=== PATIENT | male | born 1980 | race Native Hawaiian/Other Pacific Islander ===

== ENCOUNTER 2016-09-10 20:53 | Inpatient (IN) | payer OTHER ==
[2016-09-10 21:56] LABS: Basophils % (Auto) 0.4 % (0.0-1.8); Hematocrit 43.3 % (35.5-45.6); Hemoglobin 14.4 gm/dl (11.8-15.2); Mean Corpuscular HGB Conc 33 % (32-34); Mean Corpuscular Hemoglobin 29 pg (28-32); Mean Corpuscular Volume 88 fl (84-94); Platelet Count 140 K/mm3 (140-440); Red Blood Count 4.91 M/mm3 (3.65-5.03); Red Cell Distribution Width 15.4 % (13.2-15.2); White Blood Count 12.4 K/mm3 (4.5-11.0)
[2016-09-10 22:17] LABS: Anion Gap 20 mmol/L; Blood Urea Nitrogen 16 mg/dL (9-20); Calcium 9.7 mg/dL (8.4-10.2); Carbon Dioxide 25 mmol/L (22-30); Chloride 96.5 mmol/L (98-107); Glucose 262 mg/dL (75-100); Potassium 5.7 mmol/L (3.6-5.0); Sodium 136 mmol/L (137-145)
--- NOTE | 2016-09-11 06:41 | Emergency Department Report ---
ED Chest Pain HPI - General Chief Complaint: Chest Pain Stated Complaint: CHEST PAIN Time Seen by Provider: 09/11/16 06:34 Source: patient Mode of arrival: Ambulatory Limitations: No Limitations - History of Present Illness Initial Comments: This patient was initially very lethargic. Initially he stated that he had no history of heart problems or other medical problems and was not taking any medication. Later I suppose he woke up stating that indeed he was on multiple medicines for hypertension, diabetes and coronary artery disease. This includes isosorbide a beta anand and insulin. He also takes aspirin and Plavix. He has not taken any today. Indeed he has had a coronary artery bypass in 2009. Complaint: chest pain -: hour(s), days(s) Onset: during rest Pain Location: left chest Pain Radiation: none Severity scale (0 -10): 0 Quality: tightness Consistency: constant Improves With: nothing Worsens With: nothing re: denies: nausea, vomting, diaphoresis, dyspnea Other Symptoms: denies: cough, fever Treatments Prior to Arrival: aspirin (I think last dose of aspirin was yesterday ) - Related Data Allergies Allergy/AdvReac Type Severity Reaction Status Date / Time Iodinated Contrast Media - Allergy Swelling Verified 09/10/16 21:11 IV Dye MITUL score - Mitul Score Age > 65: (0) No Aspirin use within the Past 7 Days: (1) Yes 3 or more CAD Risk Factors: (1) Yes 2 or more Angina events in past 24 hrs: (0) No Known CAD with more than 50% Stenosis: (1) Yes Elevated Cardiac Markers: (0) No ST Deviation Greater than 0.5mm: (0) No MITUL Score: 3 ED Review of Systems ROS: Stated complaint: CHEST PAIN Other details as noted in HPI Constitutional: denies: chills, fever Eyes: denies: eye pain, eye discharge, vision change ENT: denies: ear pain, throat pain Respiratory: denies: cough, shortness of breath, wheezing Cardiovascular: chest pain. denies: palpitations Endocrine: no symptoms reported Gastrointestinal: denies: abdominal pain, nausea, diarrhea Genitourinary: denies: urgency, dysuria Musculoskeletal: denies: back pain, joint swelling, arthralgia Skin: denies: rash, lesions Neurological: denies: headache, weakness, paresthesias Psychiatric: denies: anxiety, depression Hematological/Lymphatic: denies: easy bleeding, easy bruising ED Past Medical Hx - Past Medical History Previous Medical History?: Yes Hx Hypertension: Yes Hx Heart Attack/AMI: Yes Hx Congestive Heart Failure: Yes Hx Diabetes: Yes Hx Psychiatric Treatment: Yes (Depression Anxiety) - Surgical History Past Surgical History?: Yes Hx Open Heart Surgery: Yes (CABG) Hx Cholecystectomy: Yes - Social History Smoking Status: Never Smoker Substance Use Type: Alcohol ED Physical Exam - General Limitations: No Limitations General appearance: alert, in no apparent distress - Head Head exam: Present: atraumatic, normocephalic - Eye Eye exam: Present: normal appearance. Absent: scleral icterus - ENT ENT exam: Present: normal exam, mucous membranes moist - Neck Neck exam: Present: normal inspection - Respiratory Respiratory exam: Present: normal lung sounds bilaterally. Absent: respiratory distress - Cardiovascular Cardiovascular Exam: Present: regular rate, normal rhythm. Absent: systolic murmur, diastolic murmur, rubs, gallop - GI/Abdominal GI/Abdominal exam: Present: soft, normal bowel sounds. Absent: distended, tenderness, guarding, rebound, rigid - Rectal Rectal exam: Present: deferred - Extremities Exam Extremities exam: Present: normal inspection - Back Exam Back exam: Present: normal inspection. Absent: CVA tenderness (R), CVA tenderness (L) - Neurological Exam Neurological exam: Present: alert, oriented X3, CN II-XII intact. Absent: motor sensory deficit - Psychiatric Psychiatric exam: Present: normal affect, normal mood - Skin Skin exam: Present: warm, dry, intact, normal color. Absent: rash ED Course Vital Signs 09/10/16 09/11/16 09/11/16 21:11 01:48 05:03 Temperature 97.8 F 97.6 F 98.1 F Pulse Rate 90 82 80 Respiratory 18 18 20 Rate Blood Pressure 114/74 Blood Pressure 112/82 108/69 [Left] O2 Sat by Pulse 98 96 100 Oximetry 09/11/16 06:20 Temperature 98.8 F Pulse Rate 78 Respiratory 12 Rate Blood Pressure Blood Pressure 113/68 [Left] O2 Sat by Pulse 97 Oximetry - Reevaluation(s) Reevaluation #1: Patient was given gentle IV fluid, low dose morphine and nitroglycerin paste. The nurse was asked to reconcile his medications. Patient now is speaking Vietnamese quite coherently. He does remain somewhat lethargic however. 09/11/16 07:43 ED Medical Decision Making - Lab Data Result diagrams: 09/10/16 21:37 09/10/16 21:37 Laboratory Results - last 24 hr 09/10/16 09/10/16 09/11/16 21:37 21:37 00:21 WBC 12.4 H RBC 4.91 Hgb 14.4 Hct 43.3 MCV 88 MCH 29 MCHC 33 RDW 15.4 H Plt Count 140 Lymph % (Auto) 8.9 L Andrews % (Auto) 4.8 Eos % (Auto) 1.0 Baso % (Auto) 0.4 Lymph # 1.1 L Andrews # 0.6 Eos # 0.1 Baso # 0.1 Seg Neutrophils % 84.9 H Seg Neutrophils # 10.5 H Sodium 136 L Potassium 5.7 H Chloride 96.5 L Carbon Dioxide 25 Anion Gap 20 BUN 16 Creatinine 1.0 Estimated GFR > 60 BUN/Creatinine Ratio 16.00 Glucose 262 H Calcium 9.7 Troponin T < 0.010 < 0.010 09/11/16 04:23 WBC RBC Hgb Hct MCV MCH MCHC RDW Plt Count Lymph % (Auto) Andrews % (Auto) Eos % (Auto) Baso % (Auto) Lymph # Andrews # Eos # Baso # Seg Neutrophils % Seg Neutrophils # Sodium Potassium Chloride Carbon Dioxide Anion Gap BUN Creatinine Estimated GFR BUN/Creatinine Ratio Glucose Calcium Troponin T < 0.010 - EKG Data EKG shows normal: sinus rhythm, axis, intervals, QRS complexes, ST-T waves Rate: normal - EKG Data When compared to previous EKG there are: previous EKG unavailable Interpretation: no acute changes, nonspecific ST-T wave swathi, other (patient has evidence of old inferior wall WA. He has poor R-wave progression. His repolarization segments do not reflect acute ischemia there are nonspecific and/ or related to previous inferior wall zone.) - Radiology Data interpreted by me: Chest x-ray showed hypoventilation and previous coronary artery bypass graft/ median sternotomy. Critical care attestation.: If time is entered above; I have spent that time in minutes in the direct care of this critically ill patient, excluding procedure time. ED Disposition Clinical Impression: Status post coronary artery bypass graft Chest pain Qualifiers: Chest pain type: unspecified Qualified Code(s): R07.9 - Chest pain, unspecified Disposition: OP ADMITTED IP TO THIS HOSP Is pt being admited?: Yes Does the pt Need Aspirin: Yes Condition: Stable Instructions: Chest Pain (ED) Time of Disposition: 07:45
[2016-09-11] MEDS ORDERED: KIONEX PO ONE ×2 (06:43→09:59)
[2016-09-11 07:27] LABS: Alanine Aminotransferase 54 units/L (7-56); Albumin 3.8 g/dL (3.9-5); Albumin/Globulin Ratio 1.2 %; Alkaline Phosphatase 113 units/L (35-129); Bilirubin,Total 0.4 mg/dL (0.1-1.2); Magnesium 1.5 mg/dL (1.7-2.3); Total Protein 6.9 g/dL (6.3-8.2)
[2016-09-11 07:30] LABS: Bilirubin,Direct < 0.2 mg/dL (0-0.2); INR 0.93 (0.87-1.13)
[2016-09-11 07:31] LABS: Partial Thromboplastin Time 33.7 Sec. (24.2-36.6)
[2016-09-11] MEDS ORDERED: ASPIRIN PO ONE (07:46)
[2016-09-11] MEDS ORDERED: NITRO-BID 2% TP ONE (07:47)
[2016-09-11] MEDS ORDERED: NACL 0.9% 1000 ML 1,000 ML IV ONE (07:47)
[2016-09-11] MEDS ORDERED: MORPHINE IV ONE (07:48)
[2016-09-11] MEDS ORDERED: ZOFRAN IV ONE (07:48)
--- NOTE | 2016-09-11 07:59 | History and Physical Report ---
History of Present Illness Date of examination: 09/11/16 Date of admission: 09/11/16 Chief complaint: Chest pain intermittent for the last 2 days History of present illness: 36-year-old male patient with significant past medical history of coronary artery disease status post CABG 2 in 2009 type 2 diabetes mellitus hypertension dyslipidemia anxiety disorder presented to the emergency room with left-sided chest pain intermittent for the last 2 days, patient claims complaints of his medications grades his chest pain between 7-8/10 at its peak, radiating to the neck and shoulder pressure to squeezing type not associated with nausea vomiting or diaphoresis, no aggravating or relieving symptoms, no orthopnea paroxysmal nocturnal dyspnea Patient complains of pain about 6-7/10 at the time of my evaluation Denies nausea vomiting or abdominal pain denies headache dizziness weakness or numbness Past History Past Medical History: CAD, diabetes, hypertension, hyperlipidemia, other ( depression) Past Surgical History: CABG, PTCA Social history: full code, other (denies recreational drug use). denies: smoking, alcohol abuse, prescription drug abuse Family history: CAD, hypertension Medications and Allergies Allergies Allergy/AdvReac Type Severity Reaction Status Date / Time Iodinated Contrast Media - Allergy Swelling Verified 09/10/16 21:11 IV Dye Home Medications Medication Instructions Recorded Confirmed Last Taken Type ALPRAZolam [Xanax TAB] 2 mg PO TID PRN 09/11/16 09/11/16 Unknown History Aspirin [Aspirin BABY CHEW TAB] 81 mg PO DAILY 09/11/16 09/11/16 Unknown History AtorvaSTATin [Lipitor] 40 mg PO DAILY 09/11/16 09/11/16 Unknown History Citalopram Hydrobromide [celeXA] 40 mg PO DAILY 09/11/16 09/11/16 Unknown History Clopidogrel Bisulfate [Plavix] 75 mg PO DAILY 09/11/16 09/11/16 Unknown History Gabapentin [Neurontin] 800 mg PO DAILY 09/11/16 09/11/16 Unknown History Isosorbide Dinitrate [Isordil] 120 mg PO DAILY 09/11/16 09/11/16 Unknown History Lisinopril [Zestril TAB] 40 mg PO QDAY 09/11/16 09/11/16 Unknown History Metoprolol [Lopressor TAB] 50 mg PO BID 09/11/16 09/11/16 Unknown History Active Meds: Active Medications Sodium Chloride (Nacl 0.9% 1000 Ml) 1,000 mls @ 75 mls/hr IV ONCE ONE Stop: 09/11/16 21:06 Review of Systems Constitutional: no weight loss, no weight gain, no fever, no chills Ears, nose, mouth and throat: no nasal congestion, no nasal discharge Cardiovascular: chest pain, lightheadedness, no orthopnea, no palpitations, no paroxysmal nocturnal dyspnea Respiratory: no cough with sputum, no hemoptysis Gastrointestinal: nausea, no vomiting, no diarrhea Genitourinary Male: no dysuria, no flank pain Musculoskeletal: no myalgias, no arthritis Integumentary: no rash, no lesions Neurological: no paralysis, no weakness, no syncope Psychiatric: anxiety, depression Endocrine: no cold intolerance, no heat intolerance, no polydipsia, no polyuria Hematologic/Lymphatic: no easy bruising, no easy bleeding Allergic/Immunologic: no urticaria, no allergic rhinitis Exam - Constitutional Vitals: Temp Pulse Resp BP Pulse Ox 98 F 82 11 L 102/73 99 09/11/16 07:44 09/11/16 07:39 09/11/16 07:39 09/11/16 07:39 09/11/16 07:39 General appearance: Present: no acute distress, well-nourished - EENT Eyes: Present: PERRL, EOM intact - Neck Neck: Present: supple, normal ROM - Respiratory Respiratory: bilateral: diminished, negative: rales, rhonchi, wheezing - Cardiovascular Rhythm: regular Heart Sounds: Present: S1 & S2 - Extremities Extremities: no ischemia, pulses symmetrical, No edema - Abdominal General gastrointestinal: Present: soft, non-tender, non-distended, normal bowel sounds - Integumentary Integumentary: Present: clear, warm - Musculoskeletal Musculoskeletal: strength equal bilaterally - Psychiatric Psychiatric: appropriate mood/affect, cooperative - Neurologic Neurologic: CNII-XII intact, moves all extremities Results - Labs CBC & Chem 7: 09/10/16 21:37 09/11/16 06:50 Labs: Abnormal lab results 09/10/16 09/10/16 09/11/16 Range/Units 21:37 21:37 06:50 WBC 12.4 H (4.5-11.0) K/mm3 RDW 15.4 H (13.2-15.2) % Lymph % (Auto) 8.9 L (13.4-35.0) % Lymph # 1.1 L (1.2-5.4) K/mm3 Seg Neutrophils % 84.9 H (40.0-70.0) % Seg Neutrophils # 10.5 H (1.8-7.7) K/mm3 Sodium 136 L (137-145) mmol/L Potassium 5.7 H (3.6-5.0) mmol/L Chloride 96.5 L (98-107) mmol/L Glucose 262 H (75-100) mg/dL POC Glucose (70-105) Magnesium 1.5 L (1.7-2.3) mg/dL Albumin 3.8 L (3.9-5) g/dL 09/11/16 Range/Units 07:39 WBC (4.5-11.0) K/mm3 RDW (13.2-15.2) % Lymph % (Auto) (13.4-35.0) % Lymph # (1.2-5.4) K/mm3 Seg Neutrophils % (40.0-70.0) % Seg Neutrophils # (1.8-7.7) K/mm3 Sodium (137-145) mmol/L Potassium (3.6-5.0) mmol/L Chloride (98-107) mmol/L Glucose (75-100) mg/dL POC Glucose 276 H (70-105) Magnesium (1.7-2.3) mg/dL Albumin (3.9-5) g/dL Assessment and Plan --Chest pain rule out acute coronary syndrome Aspirin, Plavix , beta blockers VISHAL inhibitor , nitrates and statins In management with morphine and Lovenox Serial cardiac enzymes and EKG, echocardiogram for left ventricle function ejection fraction Cardiology evaluation in view of multiple risk factors possible heart cath versus stress test Resume home cardiac medications --History of coronary artery disease status post CABG Resume all home medications Try to obtain medical records from the outside hospital --Hyperkalemia Calcium chloride , Kayexalate , insulin and D50 Recheck potassium and electrolytes --Hypomagnesemia Replenish per protocol and monitor levels --Hypertension moderate control Patient is on beta blockers VISHAL inhibitor's when necessary hydralazine --Dyslipidemia resume lipid-lowering medications --Type 2 diabetes mellitus uncontrolled , patient is on insulin Accu-Chek sliding scale coverage and ADA diet and insulin Check A1c --Diabetic neuropathy Resume home Neurontin --DVT prophylaxis with Lovenox Closely monitor the patient adjust the management as needed Patient's condition treatment plan discussed in detail with the patient his nurse as well as the years physician
[2016-09-11] MEDS ORDERED: MAGNESIUM SULFATE 2GM/50ML 50 ML IV ONE ×2 (08:36→10:17)
[2016-09-11] MEDS ORDERED: AMBIEN PO PRN (08:51)
--- NOTE | 2016-09-11 09:16 | XRay Report ---
Single view chest: History: Hypertension. Findings: Low volume lungs. Normal cardiomediastinal silhouette. No consolidation, pneumothorax or pleural effusion. Impression: No acute cardiopulmonary findings.
[2016-09-11 09:36] LABS: Creatine Kinase MB 1.4 ng/mL (0.0-4.0)
[2016-09-11 09:38] LABS: Cholesterol 153 mg/dL (50-199); Creatine Kinase 49 units/L (55-170); HDL Cholesterol 50 mg/dL (40-59); LDL Cholesterol,Direct 73 mg/dL (50-130); Triglycerides 153 mg/dL (2-149)
[2016-09-11] MEDS ORDERED: CALCIUM CHLORIDE 1,000 MG in NACL 0.9% 100 ML IV ONE (09:59)
[2016-09-11] MEDS ORDERED: BENADRYL PO PRN (10:00)
[2016-09-11] MEDS ORDERED: ZESTRIL PO SCH (10:00)
[2016-09-11] MEDS ORDERED: BENADRYL IV ONE (10:00)
[2016-09-11] MEDS ORDERED: NACL 0.9% 1000 ML 1,000 ML ONE (11:27)
[2016-09-11] MEDS ORDERED: ASPIRIN ONE (11:27)
[2016-09-11] MEDS ORDERED: KIONEX ONE (11:27)
[2016-09-11] MEDS ORDERED: PLAVIX ONE (11:28)
[2016-09-11] MEDS ORDERED: ZESTRIL ONE (11:28)
[2016-09-11] MEDS ORDERED: BENADRYL ONE (11:29)
[2016-09-11] MEDS: LOVENOX SUB-Q SCH (11:35)
[2016-09-11] MEDS: PLAVIX PO SCH (11:40)
[2016-09-11] MEDS: ASPIRIN PO SCH (11:50)
[2016-09-11] MEDS: celeXA PO SCH (11:51)
[2016-09-11] MEDS ORDERED: LOVENOX SUB-Q ONE (12:02)
[2016-09-11] MEDS ORDERED: COREG ONE (12:03)
[2016-09-11] MEDS: COREG PO SCH ×2 (12:08→23:12)
[2016-09-11] MEDS: IMDUR PO SCH (12:35)
[2016-09-11 12:56] LABS: Urine Drugs of Abuse Note Disclamer
[2016-09-11] MEDS ORDERED: NOVOLOG SUB-Q ONE (13:11)
[2016-09-11] MEDS: NOVOLOG SUB-Q SCH ×3 (13:17→23:11)
[2016-09-11 13:21] LABS: Bacteria,Urine 1+ /HPF (Negative); Bilirubin,Urine NEG (Negative); Blood,Urine NEG (Negative); Ketones,Urine NEG (Negative); Leukocyte Esterase,Urine NEG (Negative); Mucus,Urine FEW /HPF; Nitrite,Urine NEG (Negative); Protein,Urine <15 mg/dL mg/dL (Negative); Urobilinogen,Urine < 2.0 mg/dL (<2.0)
[2016-09-11] MEDS: MORPHINE IV PRN (18:19)
[2016-09-11] MEDS ORDERED: XANAX PO PRN (22:09)
[2016-09-11] MEDS: ROXICODONE PO PRN (23:07)
[2016-09-11] MEDS: LEVEMIR SUB-Q SCH (23:11)
--- NOTE | 2016-09-11 23:56 | Admit Criteria Form ---
Admission Criteria Documentation: CARDIOLOGY GRG Clinical Indications for Admission to Inpatient Care ( Place 'X' for any and all applicable criteria): Hospital admission is needed for appropriate care of the patient because of ANY ONE of the following (1): [ ] I. Hemodynamic instability as indicated by ALL of the following (1)(2)(3) (4)(5) [ ]a) Vital signs or other findings not as expected for chronic patient condition or baseline [ ]b) Instability indicated by ANY ONE of the following: [ ]i) Hypotension [ ]ii) Symptomatic Tachycardia unresponsive to treatment ( e.g., analgesia, fluids, sedation as indicated) [ ]iii) Inadequate perfusion indicated by ANY ONE of the following: [ ] 1) Lactic acidosis (> 2 mmol/L) [ ] 2) New abnormal capillary refill (> 3 seconds) [ ] 3) Reduced urine output [ ] 4) New altered mental status [ ]iv) Orthostatic vital sign changes unresponsive to treatment (e.g., fluids) [ ]v) IV inotropic or vasopressor medication required to maintain adequate blood pressure or perfusion [ ] II. Severe heart failure as indicated by ANY ONE of the following(17)(18) [ ]a) Respiratory distress [ ]b) Hypotension [ ]c) Anasarca (refractory to outpatient therapy) [ ]d) Cardiac arrhythmias of immediate concern [ ]e) Myocardial ischemia [ ] III. Cardiac arrhythmias or findings of immediate concern indicated by ANY ONE of the following (19)(20): [ ] a) Heart rhythms that are inherently dangerous or unstable indicated by ANY ONE of the following (21)(22)(23): [ ] i) Resuscitated ventricular fibrillation or cardiac arrest [ ] ii) Ventricular escape rhythm [ ] iii) Sustained ventricular tachycardia (30 seconds or more of ventricular rhythm at greater than 100 beats per minute) [ ] iv) Nonsustained ventricular tachycardia and ANY ONE of the following: [ ] 1) Suspected cardiac ischemia as cause or consequence of ventricular tachycardia [ ] 2) In setting of acute myocarditis [ ] b) Unstable cardiac conduction defects indicated by ANY ONE of the following(23)(24)(25) [ ] i) Type II second-degree atrioventricular block [ ]ii) Third-degree atrioventricular block [ ]iii) New-onset left bundle branch block with suspected myocardial ischemia [ ]c) Any heart rhythm and ANY ONE of the following (21)(22)(26)(27) (28) [ ] i) Continuous long-term ECG monitoring needed (e.g., initiation of drug requiring monitoring for more than 24 hours) [ ] ii) Patient has automatic implanted cardioverter defibrillator that is repeatedly firing, malfunctioning, or in need of immediate adjustment of settings beyond the scope of ambulatory or observation care [ ]d) Heart rhythms of concern due to ANY ONE of the following: [ ] i) Hypotension [ ] ii) Respiratory distress [ ] iii) Association with other significant symptoms (e.g., bradycardia with syncope or ongoing dizziness, supraventricular tachycardia with chest pain (14)(15)(17) [ ] IV. Monitoring for cardiac contusion beyond the scope of observation care needed [A](30)(31)(32) [ ] V. Surgical or device complication (e.g., valve replacement complication , pacemaker dysfunction) (35)(41)(44)(45)(46) [ ] . Inpatient palliative care needed. [B](49) Also use Inpatient Palliative Care Criteria [ ] VII. Nonbacterial thrombotic (marantic) endocarditis (36)(43)(47)(48) [X ] VIII. Cardiology condition, symptom, or finding for which emergency and observation care has failed or are not considered appropriate. [ ] IX. Acute valvular disease requiring inpatient as indicated by ANY ONE of the following (41) [ ]a) Acute valvular regurgitation (42) [ ]b) Noninfectious valvulitis (43) [ ]c) Obstructive valve thrombosis [ ]d) Paravalvular leak [ ]e) Other significant valvular disorder remaining after emergency or observation level of care (as appropriate) [ ]X. Pericardial disease requiring inpatient treatment as indicated by ANY ONE of the following (33)(34)(35)(36)(37) [ ]a) Suspected tamponade (38)(39)(40) [ ]b) Hemopericardium [ ]c) Other significant pericardial disorder remaining after emergency or observation level of care (as appropriate) [ ] XI. Cardiac ischemia beyond scope of emergency and observation care. [ ] XII. Hypertension requiring inpatient treatment as indicated by ANY ONE of the following (6)(7)(8) [ ]a) SBP greater than 220 mm Hg or DBP greater than 120 mmHg despite treatment [ ]b) SBP greater than 140 mm Hg or DBP greater than 100 mm Hg with evidence of acute end organ damage as indicated by ANY ONE of the following [ ] i) Altered mental status [ ] ii) Acute renal failure as indicated by new onset of ANY ONE of the following (9)(10)(11)(12)(13) [ ]1) 3-fold rise in serum creatinine from baseline [ ]2) Serum creatinine greater than 4 mg/dL ( 354 micromoles/L) with acute rise greater than 0.5 mg/dL (44.2 micromoles/L) [ ]3) Reduction of more than 75% in estimated glomerular filtration rate from baseline [ ]4) Estimated glomerular filtration rate less than 35 mL/min/1.73m2 (0.59 mL/sec/1.73m2) in child up to 18 years of age [ ]5) Cessation of urine output indicated by ALL of the following [ ]A. Adequate volume status [ ]B. Inadequate urine output as indicated by ANY ONE of the following [ ]a. Urine output less than 0.3 mL/kg/hr for 24 hours [ ]b. Anuria (urine output less than 0.1 mL/kg/hr) for 12 hours [ ] iii) Aortic dissection [ ] iv) Myocardial Ischemia [ ] v) Left ventricular heart failure [ ]vi) Retinal Hemorrhage [ ]vii) Other significant finding [ ]c) Hypertension in child requiring inpatient treatment as indicated by ALL of the following(14)(15)(16) [ ] i) Outpatient treatment not effective, not available, or not appropriate [ ]ii) SBP or DBP greater than 95th percentile for age [ ]iii) Evidence of acute end organ damage as indicated by ANY ONE of the following [ ]1) Altered mental status [ ]2) Acute renal failure as indicated by new onset of ANY ONE of the following(9)(10)(11)(12)(13) [ ]A. 3-fold rise in serum creatinine from baseline [ ]B. Serum creatinine greater than 4 mg/dL (354 micromoles/L) with acute rise greater than 0.5 mg/dL (44.2 micromoles/L) [ ]C. Reduction of more than 75% in estimated glomerular filtration rate from baseline [ ]D. Estimated glomerular filtration rate less than 35 mL/min/1.73m2 (0.59 mL/sec/1.73m2) in child up to 18 years of age [ ]E. Cessation of urine output indicated by ALL of the following [ ]a. Adequate volume status [ ]b. Inadequate urine output as indicated by ANY ONE of the following [ ]i) Urine output less than 0.3 mL/kg/hr for 24 hours [ ]ii) Anuria ( urine output less than 0.1 mL/kg/hr) for 12 hours [ ]3) Severe headache [ ]4) Visual disturbance [ ]5) Retinal hemorrhage [ ]6) Other significant finding [ ]XIII. Complications of transplanted heart indicated by ANY ONE of the following(61): [ ]a) Acute graft rejection requiring inpatient management (eg, intravenous immunosuppression)(62)(63) [ ]b) Acute graft heart failure indicated by ANY ONE of the following(64): [ ]i) Hemodynamic instability [ ]ii) Cardiac arrhythmias of immediate concern [ ]iii) Pulmonary edema that is very severe (eg, mechanical ventilation needed, imminent or likely, need for 100% oxygen to keep oxygen saturation above 90%) [ ]iv) Pulmonary edema that is persistent as indicated by ALL of the following: [ ]1) New need for oxygen therapy to keep oxygen saturation above 90% (or increased FiO2 need from baseline) [ ]2) Has not improved sufficiently with emergency department or observation care IV diuretics or other heart failure treatments[E] [ ]v) Altered mental status that is severe or persistent [ ]vi) Increased creatinine (new on laboratory test) with reduction of more than 50% in estimated glomerular filtration rate from baseline [ ]vii) Progressively (ongoing) rising creatinine (known from past laboratory test) with reduction of more than 25% in estimated glomerular filtration rate from baseline [ ]viii) Acute renal failure [ ]ix) Acute peripheral ischemia (eg, examination shows pulseless, cool, mottled, or cyanotic extremity) [ ]x) Pulmonary artery catheter monitoring needed [ ]xi) Other sign or symptom of heart failure requiring inpatient treatment (ie, too severe or not responsive to outpatient and observation care treatment) [ ]c) Infection requiring inpatient management (eg, Hemodynamic instability, need for intravenous antimicrobial treatment)(66)(67)(68)(69)(70) [ ]d) Cardiac allograft vasculopathy requiring inpatient management ( eg evidence of cardiac ischemia)(71) [ ]e) Other complication of transplanted heart (eg, stroke, severe pulmonary hypertension, severe valvular dysfunction) requiring inpatient management(72) The original [facility] [employer] content created by [facility] has been revised. The portions of the content which have been revised are identified through the use of italic text or in bold, and [facility] has neither reviewed nor approved the modified material. All other unmodified content is copyright [facility] [employer]. Please see references footnoted in the original [facility] [employer] edition 2016 Admission Criteria Met: Yes
[2016-09-12] MEDS ORDERED: TYLENOL PO PRN (04:04)
[2016-09-12] MEDS: BENADRYL IV PRN ×2 (04:05→23:14)
[2016-09-12] MEDS: MORPHINE IV PRN (04:05)
[2016-09-12] MEDS: ROXICODONE PO PRN ×2 (07:20→13:19)
[2016-09-12 07:55] LABS: Basophils % (Auto) 0.2 % (0.0-1.8); Eosinophils % (Auto) 1.4 % (0.0-4.3); Hematocrit 35.5 % (35.5-45.6); Hemoglobin 11.7 gm/dl (11.8-15.2); Mean Corpuscular HGB Conc 33 % (32-34); Mean Corpuscular Hemoglobin 29 pg (28-32); Mean Corpuscular Volume 88 fl (84-94); Red Blood Count 4.02 M/mm3 (3.65-5.03); Red Cell Distribution Width 16.1 % (13.2-15.2)
[2016-09-12 08:10] LABS: Platelet Count 86 K/mm3 (140-440)
[2016-09-12 08:26] LABS: BUN/Creatinine Ratio 16.25; Blood Urea Nitrogen 13 mg/dL (9-20); Calcium 7.9 mg/dL (8.4-10.2); Carbon Dioxide 24 mmol/L (22-30); Chloride 97.4 mmol/L (98-107); Glucose 270 mg/dL (75-100); Magnesium 1.4 mg/dL (1.7-2.3); Potassium 4.7 mmol/L (3.6-5.0); Sodium 137 mmol/L (137-145)
[2016-09-12 08:33] LABS: Anion Gap 20 mmol/L
[2016-09-12] MEDS: celeXA PO SCH (09:34)
[2016-09-12] MEDS: PLAVIX PO SCH (09:34)
[2016-09-12] MEDS: ASPIRIN PO SCH (09:34)
[2016-09-12] MEDS: COREG PO SCH ×2 (09:35→22:46)
[2016-09-12] MEDS: IMDUR PO SCH (09:35)
[2016-09-12] MEDS: NOVOLOG SUB-Q SCH ×4 (09:37→22:46)
[2016-09-12] MEDS: LOVENOX SUB-Q SCH (09:38)
--- NOTE | 2016-09-12 13:49 | Echocardiography Report ---
Transthoracic Echocardiogram Indication: CP/CAD/LV FXN BP: 110/58 Conclusions *Global left ventricular systolic function is at the lower limits of normal. *The estimated ejection fraction is 45-50%. *The aortic valve structure is normal. *The mitral valve leaflets appear normal. *The tricuspid valve leaflets are normal. *There is no dilatation of the ascending aorta. *There is no pericardial effusion. Findings Procedure Info: The study quality is fair. Left Ventricle: The left ventricular chamber size is normal. Global left ventricular systolic function is at the lower limits of normal. The estimated ejection fraction is 45-50%. Normal left ventricular diastolic filling is observed. Left Atrium: The left atrium is normal in size with no visual thrombus identified. Right Ventricle: The right ventricular cavity size is normal. The right ventricular global systolic function is normal. Right Atrium: The right atrium appears normal. The interatrial septum appears normal. Aortic Valve: The aortic valve structure is normal. There is no evidence of aortic regurgitation. There is no evidence of aortic stenosis. Mitral Valve: The mitral valve leaflets appear normal. There is no evidence of mitral regurgitation. There is no evidence of mitral stenosis. Tricuspid Valve: The tricuspid valve leaflets are normal. There is mild tricuspid regurgitation. The right ventricular systolic pressure is estimated to be 20-25 mmHg. There is no tricuspid stenosis. Pulmonic Valve: The pulmonic valve appears normal. There is no evidence of pulmonic regurgitation. There is no pulmonic stenosis. Pericardium: There is no pericardial effusion. Aorta: There is no dilatation of the ascending aorta. There is no dilatation of the aortic arch. There is no dilatation of the descending thoracic aorta. There is no dilatation of the aortic root. Venous: The inferior vena cava appears normal in size. Measurements Chambers MM Name Value Normal Range Ao root diameter (MM) 3.5 cm (2 - 3.7) LA dimension (AP) MM 3.8 cm (1.9 - 4) LA:Ao ratio (MM) 1.09 ratio - AV cusp separation (MM) 1.8 cm (1.5 - 2.6) Chambers 2D Name Value Normal Range RVIDd (AP) 2D 4.13 cm (0.9 - 2.6) IVSd (2D) 1.04 cm (0.6 - 1.1) LVPWd (2D) 0.75 cm (0.6 - 1.1) IVS:LVPW ratio (2D) 1.39 ratio - LVIDd (2D) 4.2 cm (3.7 - 5.6) LVIDs (2D) 3.09 cm (2 - 3.8) LV FS (Teichholz) (2D) 26.4 % - LV FS (cube) (2D) 26.4 % - EF Teichholz (2D) 52.2 % - Ao root diameter (2D) 3.4 cm (2 - 3.7) LA dimension (AP) 2D 3.4 cm (1.9 - 4) LA:Ao ratio (2D) 1 ratio - Volumes/Mass Name Value Normal Range LA ESV SP 4CH (MOD) 37 ml - LA ESV SP 2CH (MOD) 40 ml - LA ESV BP (MOD) 40 ml - LA ESV BP (MOD) index 19.3 ml/m2 - Diastolic/Systolic Function Name Value Normal Range MV E-wave Vmax 0.67 m/sec - MV deceleration time 151 msec - MV A-wave Vmax 0.78 m/sec - MV E:A ratio 0.9 ratio - LV septal e' Vmax 0.06 m/sec - LV lateral e' Vmax 0.1 m/sec - LV E:e' septal ratio 10.6 ratio - LV E:e' lateral ratio 6.8 ratio - Aortic Valve Name Value Normal Range AV Vmax 0.9 m/sec - AV peak gradient 3 mmHg - LVOT diameter 2.4 cm - LVOT Vmax 0.83 m/sec - LVOT peak gradient 3 mmHg - BARBIE (continuity Vmax) 4.18 cm2 - Tricuspid Valve Name Value Normal Range TV E-wave Vmax 0.5 m/sec - TR Vmax 2.25 m/sec - TR peak gradient 20 mmHg - Pulmonic Valve/Qp:Qs Name Value Normal Range PV Vmax 0.75 m/sec - PV peak gradient 2 mmHg - PV acceleration time 146 msec -
[2016-09-12] MEDS ORDERED: MAGNESIUM SULFATE 3 GM in NACL 0.9% 100 ML IV ONE (14:12)
--- NOTE | 2016-09-12 18:29 | Progress Note ---
Assessment and Plan Assessment and plan: --Chest pain rule out acute coronary syndrome Aspirin, Plavix , beta blockers VISHAL inhibitor , nitrates and statins cardiac enzymes 3 negative , echocardiogram ejection fraction 45-50% Cardiology scheduled stress test tomorrow --History of coronary artery disease status post CABG Intended current cardiac medications Try to obtain medical records from the outside hospital --Hyperkalemia; dictated --Hypomagnesemia Replenish per protocol and monitor levels --Hypertension moderate control Patient is on beta blockers VISHAL inhibitor's when necessary hydralazine --Dyslipidemia resume lipid-lowering medications --Type 2 diabetes mellitus uncontrolled , patient is on insulin Accu-Chek sliding scale coverage and ADA diet and insulin Check A1c --History of depression/anxiety Continue antidepression medications, psych evaluation Patient denies any suicidal thoughts or ideation --Diabetic neuropathy Resume home Neurontin --DVT prophylaxis with Lovenox --Medical non-complains; patient is refusing medications and treatment Counseled the patient the importance of adhering to the treatment plan, verbalized understanding Closely monitor the patient adjust the management as needed Patient's condition treatment plan discussed in detail with the patient his nurse as well as the years physician History Interval history: Patient seen and evaluated medical records reviewed No new events reported by the nursing staff except that patient is refusing medications When asked for more pain medications Patient feels slightly better, intermittent chest pain Scheduled for stress test tomorrow by cardiology Hospitalist Physical - Constitutional Vitals: Temp Pulse Resp BP Pulse Ox 97.9 F 90 18 87/50 97 09/12/16 17:27 09/12/16 17:27 09/12/16 17:27 09/12/16 17:27 09/12/16 17:27 General appearance: Present: no acute distress, well-nourished, other (lethargic , secondary to pain medication, easily awakens and responds appropriately) - EENT Eyes: Present: PERRL, EOM intact - Neck Neck: Present: supple, normal ROM - Respiratory Respiratory effort: normal Respiratory: bilateral: diminished, negative: rales, rhonchi, wheezing - Cardiovascular Rhythm: regular Heart Sounds: Present: S1 & S2 - Extremities Extremities: no ischemia, pulses intact, pulses symmetrical - Abdominal General gastrointestinal: soft, non-tender, non-distended, normal bowel sounds - Integumentary Integumentary: Present: clear, warm - Psychiatric Psychiatric: appropriate mood/affect, cooperative - Neurologic Neurologic: CNII-XII intact, moves all extremities Results - Labs CBC & Chem 7: 09/12/16 07:01 09/12/16 07:01 Labs: Laboratory Last Values WBC 8.0 K/mm3 (4.5-11.0) 09/12/16 07:01 RBC 4.02 M/mm3 (3.65-5.03) 09/12/16 07:01 Hgb 11.7 gm/dl (11.8-15.2) L 09/12/16 07:01 Hct 35.5 % (35.5-45.6) D 09/12/16 07:01 MCV 88 fl (84-94) 09/12/16 07:01 MCH 29 pg (28-32) 09/12/16 07:01 MCHC 33 % (32-34) 09/12/16 07:01 RDW 16.1 % (13.2-15.2) H 09/12/16 07:01 Plt Count 86 K/mm3 (140-440) L 09/12/16 07:01 Lymph % (Auto) 5.6 % (13.4-35.0) L 09/12/16 07:01 [place] % (Auto) 7.8 % (0.0-7.3) H 09/12/16 07:01 Eos % (Auto) 1.4 % (0.0-4.3) 09/12/16 07:01 Baso % (Auto) 0.2 % (0.0-1.8) 09/12/16 07:01 Lymph # 0.4 K/mm3 (1.2-5.4) L 09/12/16 07:01 [place] # 0.6 K/mm3 (0.0-0.8) 09/12/16 07:01 Eos # 0.1 K/mm3 (0.0-0.4) 09/12/16 07:01 Baso # 0.0 K/mm3 (0.0-0.1) 09/12/16 07:01 Seg Neutrophils % 85.0 % (40.0-70.0) H 09/12/16 07:01 Seg Neutrophils # 6.8 K/mm3 (1.8-7.7) 09/12/16 07:01 PT 12.4 Sec. (12.2-14.9) 09/11/16 06:50 INR 0.93 (0.87-1.13) 09/11/16 06:50 APTT 33.7 Sec. (24.2-36.6) 09/11/16 06:50 Sodium 137 mmol/L (137-145) 09/12/16 07:01 Potassium 4.7 mmol/L (3.6-5.0) 09/12/16 07:01 Chloride 97.4 mmol/L (98-107) L 09/12/16 07:01 Carbon Dioxide 24 mmol/L (22-30) 09/12/16 07:01 Anion Gap 20 mmol/L 09/12/16 07:01 BUN 13 mg/dL (9-20) 09/12/16 07:01 Creatinine 0.8 mg/dL (0.8-1.5) 09/12/16 07:01 Estimated GFR > 60 ml/min 09/12/16 07:01 BUN/Creatinine Ratio 16.25 % 09/12/16 07:01 Glucose 270 mg/dL (75-100) H 09/12/16 07:01 POC Glucose 139 (70-105) H 09/11/16 21:38 Hemoglobin A1c 12.4 % (4-6) H 09/10/16 21:37 Calcium 7.9 mg/dL (8.4-10.2) L D 09/12/16 07:01 Magnesium 1.4 mg/dL (1.7-2.3) L 09/12/16 07:01 Total Bilirubin 0.4 mg/dL (0.1-1.2) 09/11/16 06:50 Direct Bilirubin < 0.2 mg/dL (0-0.2) 09/11/16 06:50 AST 37 units/L (5-40) 09/11/16 06:50 ALT 54 units/L (7-56) 09/11/16 06:50 Alkaline Phosphatase 113 units/L (35-129) 09/11/16 06:50 Total Creatine Kinase 49 units/L (55-170) L 09/11/16 06:50 CK-MB (CK-2) 1.4 ng/mL (0.0-4.0) 09/11/16 06:50 CK-MB (CK-2) Rel Index 2.8 (0-4) 09/11/16 06:50 Troponin T < 0.010 ng/mL (0.00-0.029) 09/11/16 06:50 NT-Pro-B Natriuret Pep 65.60 pg/mL (0-450) 09/11/16 06:50 Total Protein 6.9 g/dL (6.3-8.2) 09/11/16 06:50 Albumin 3.8 g/dL (3.9-5) L 09/11/16 06:50 Albumin/Globulin Ratio 1.2 % 09/11/16 06:50 Triglycerides 153 mg/dL (2-149) H 09/11/16 06:50 Cholesterol 153 mg/dL (50-199) 09/11/16 06:50 LDL Cholesterol Direct 73 mg/dL (50-130) 09/11/16 06:50 HDL Cholesterol 50 mg/dL (40-59) 09/11/16 06:50 Cholesterol/HDL Ratio 3.06 % 09/11/16 06:50 Urine Color Yellow (Yellow) 09/11/16 07:45 Urine Turbidity Clear (Clear) 09/11/16 07:45 Urine pH 5.0 (5.0-7.0) 09/11/16 07:45 Ur Specific [place] 1.013 (1.003-1.030) 09/11/16 07:45 Urine Protein <15 mg/dl mg/dL (Negative) 09/11/16 07:45 Urine Glucose (UA) >=500 mg/dL (Negative) 09/11/16 07:45 Urine Ketones Neg mg/dL (Negative) 09/11/16 07:45 Urine Blood Neg (Negative) 09/11/16 07:45 Urine Nitrite Neg (Negative) 09/11/16 07:45 Urine Bilirubin Neg (Negative) 09/11/16 07:45 Urine Urobilinogen < 2.0 mg/dL (<2.0) 09/11/16 07:45 Ur Leukocyte Esterase Neg (Negative) 09/11/16 07:45 Urine WBC (Auto) 9.0 /HPF (0.0-6.0) H 09/11/16 07:45 Urine RBC (Auto) 3.0 /HPF (0.0-6.0) 09/11/16 07:45 U Epithel Cells (Auto) < 1.0 /HPF (0-13.0) 09/11/16 07:45 Urine Bacteria (Auto) 1+ /HPF (Negative) 09/11/16 07:45 Urine Mucus Few /HPF 09/11/16 07:45 Urine Opiates Screen Presumptive negative 09/11/16 07:45 Urine Methadone Screen Presumptive negative 09/11/16 07:45 Ur Barbiturates Screen Presumptive positive 09/11/16 07:45 Ur Phencyclidine Scrn Presumptive negative 09/11/16 07:45 Ur Amphetamines Screen Presumptive negative 09/11/16 07:45 U Benzodiazepines Scrn Presumptive positive 09/11/16 07:45 Urine Cocaine Screen Presumptive negative 09/11/16 07:45 U Marijuana (THC) Screen Presumptive negative 09/11/16 07:45 Drugs of Abuse Note Disclamer 09/11/16 07:45 Plasma/Serum Alcohol < 0.01 gm% (0-0.07) 09/11/16 06:57
[2016-09-12] MEDS ORDERED: ROXICODONE PO PRN (18:38)
--- NOTE | 2016-09-12 21:03 | Consultation ---
HISTORY OF PRESENT ILLNESS: The patient is a 36-year-old gentleman who works as a executive chef assistant comes in for evaluation of chest pain. For the last couple of days, he has been having intermittent chest pains in the left side of his chest with radiation to the left arm. He says that at present this is almost constant discomfort with brief relief in between. This has no relationship to any particular activity. The patient is known to have coronary artery disease, diabetes, hypertension, and hyperlipidemia. The patient had a myocardial infarction about 8 years ago followed by quadruple bypass surgery, which happened in [place]. His job is a travelling executive chef assistant and does not exercise regularly, nonsmoker, nonalcoholic. REVIEW OF SYSTEMS: HEAD, EYES, EARS, NOSE, AND THROAT: No symptoms. ENDOCRINE: The patient is known to have diabetes. GASTROINTESTINAL: No abdominal pain. He did have mild nausea earlier. RESPIRATORY: No significant recurrent pneumonia. GENITOURINARY: No symptoms. MUSCULOSKELETAL: No symptoms. CENTRAL NERVOUS SYSTEM: No symptoms. PERSONAL HISTORY: Nonsmoker, nonalcoholic. PHYSICAL EXAMINATION: GENERAL: Adult male, well built, well nourished, in no acute distress at this time. VITAL SIGNS: Blood pressure 110/58, pulse 110, respirations 18, pulse ox 95. HEAD, EYES, EARS, NOSE, AND THROAT: Unremarkable. NECK: Supple. No thyromegaly. Both carotids are . DIAGNOSTIC STUDIES: EKG sinus rhythm, nonspecific ST changes. LABORATORY DATA: Cardiac enzymes are negative. Hemoglobin 11.7, hematocrit . Potassium 4.7, BUN 13, creatinine 0.8, blood sugar 270. IMPRESSION: 1. Chest pain, etiology uncertain. 2. Coronary artery disease, status post myocardial infarction, status post bypass surgery about 8 years ago. 3. Hypertension. 4. Diabetes. The patient is seen for cardiac evaluation. Currently, cardiac status appears to be satisfactory; however, the etiology of chest pain is uncertain and the pain itself is somewhat atypical. However, we will obtain a cardiac workup and the patient will be monitored and followed closely with you. Thank you for allowing me to participate in the care of this pleasant gentleman. JOB# [id number] KB/NTS
[2016-09-12] MEDS: LEVEMIR SUB-Q SCH (22:46)
[2016-09-13] MEDS: MORPHINE IV PRN (05:25)
[2016-09-13 08:07] LABS: Anion Gap 16 mmol/L; BUN/Creatinine Ratio 17.14; Blood Urea Nitrogen 12 mg/dL (9-20); Calcium 8.2 mg/dL (8.4-10.2); Carbon Dioxide 26 mmol/L (22-30); Chloride 97.9 mmol/L (98-107); Glucose 264 mg/dL (75-100); Potassium 4.6 mmol/L (3.6-5.0); Sodium 135 mmol/L (137-145)
[2016-09-13] MEDS ORDERED: LEXISCAN IV ONE ×2 (09:25→09:30)
--- NOTE | 2016-09-13 10:51 | Consultation ---
History of Present Illness Consult date: 09/13/16 Requesting physician: JAZ MORALES Consult reason: chest pain History of present illness: This is a 36-year-old gentleman with known history of four-vessel bypass 4 years ago and [place] states having multiple stents afterwards patient states last heart catheterization was 18 months ago and which only 2 bypass grafts were working and 2 bypass grafts were occluded .patient states is on aspirin statin and compliant with BP meds patient is traveling back and forth from [place] to [place] presents to the emergency room with left-sided chest pressure radiation to the left sided neck and left arm no nausea no vomiting patient cardiac enzymes have been negative patient stress lab states chest pain has improved. Patient denies any exertional type symptoms prior patient states does not exert himself on a regular basis works and arrest from business and states his daily activities does not have chest pain. Patient denies any fever chills syncope or palpitations Past History Past Medical History: CAD (four-vessel bypass and multiple stents), diabetes, hypertension, hyperlipidemia, other (depression) Past Surgical History: CABG, PTCA Social history: full code, other (denies recreational drug use). denies: smoking, alcohol abuse, prescription drug abuse Family history: CAD, hypertension Medications and Allergies Allergies Allergy/AdvReac Type Severity Reaction Status Date / Time acetaminophen [From Tylenol] Allergy Severe Anaphylaxis Verified 09/12/16 04:11 Iodinated Contrast Media - Allergy Swelling Verified 09/10/16 21:11 IV Dye Home Medications Medication Instructions Recorded Confirmed Last Taken Type ALPRAZolam [Xanax TAB] 2 mg PO TID PRN 09/11/16 09/11/16 Unknown History Aspirin [Aspirin BABY CHEW TAB] 81 mg PO DAILY 09/11/16 09/11/16 Unknown History AtorvaSTATin [Lipitor] 40 mg PO DAILY 09/11/16 09/11/16 Unknown History Citalopram Hydrobromide [celeXA] 40 mg PO DAILY 09/11/16 09/11/16 Unknown History Clopidogrel Bisulfate [Plavix] 75 mg PO DAILY 09/11/16 09/11/16 Unknown History Gabapentin [Neurontin] 800 mg PO DAILY 09/11/16 09/11/16 Unknown History Isosorbide Dinitrate [Isordil] 120 mg PO DAILY 09/11/16 09/11/16 Unknown History Lisinopril [Zestril TAB] 40 mg PO QDAY 09/11/16 09/11/16 Unknown History Metoprolol [Lopressor TAB] 50 mg PO BID 09/11/16 09/11/16 Unknown History Active Meds: Active Medications Alprazolam (Xanax) 2 mg PO Q8H PRN PRN Reason: Anxiety Last Admin: 09/11/16 23:06 Dose: 2 mg Aspirin (Aspirin) 325 mg PO QDAY [facility] Last Admin: 09/12/16 09:34 Dose: 325 mg Atorvastatin Calcium (Lipitor) 80 mg PO QHS [facility] Last Admin: 09/12/16 22:45 Dose: 80 mg Carvedilol (Coreg) 25 mg PO BID [facility] Last Admin: 09/12/16 22:46 Dose: 25 mg Citalopram Hydrobromide (Celexa) 40 mg PO QDAY [facility] Last Admin: 09/12/16 09:34 Dose: 40 mg Clopidogrel Bisulfate (Plavix) 75 mg PO DAILY [facility] Last Admin: 09/12/16 09:34 Dose: 75 mg Diphenhydramine HCl (Benadryl) 25 mg PO Q8H PRN PRN Reason: Itching Diphenhydramine HCl (Benadryl) 25 mg IV Q8H PRN PRN Reason: Itching Last Admin: 09/12/16 23:14 Dose: 25 mg Enoxaparin Sodium (Lovenox) 40 mg SUB-Q QDAY [facility] Last Admin: 09/12/16 09:38 Dose: Not Given Insulin Aspart (Novolog) 0 units SUB-Q [facility] PRN Reason: Protocol Last Admin: 09/12/16 22:46 Dose: Not Given Insulin Detemir ([facility]vemir) [facility] Last Admin: 09/12/16 22:46 Dose: Not Given Insulin Human Regular (Novolin R) 10 units SUB-Q [facility] Last Admin: 09/12/16 12:59 Dose: 10 units Isosorbide Mononitrate (Imdur) 60 mg PO QDAY [facility] Last Admin: 09/12/16 09:35 Dose: 60 mg Morphine Sulfate (Morphine) 2 mg IV Q4H PRN PRN Reason: Pain, Moderate (4-6) Last Admin: 09/13/16 05:25 Dose: 2 mg Oxycodone HCl (Roxicodone) 30 mg PO Q8H PRN PRN Reason: Pain, Moderate (4-6) Zolpidem Tartrate (Ambien) 5 mg PO QHS PRN PRN Reason: Sleep Review of Systems All systems: negative (14 system review negative except H&P) Physical Examination Vital Signs Temp Pulse Resp BP Pulse Ox 97.8 F 90 18 114/74 98 09/10/16 21:11 09/10/16 21:11 09/10/16 21:11 09/10/16 21:11 09/10/16 21:11 General appearance: no acute distress, well-nourished HEENT: Positive: PERRL, Mucus Membranes Moist Neck: Positive: neck supple, trachea midline Cardiac: Positive: Reg Rate and Rhythm, S1/S2. Negative: Audible Murmur Lungs: Positive: clear to auscultation, Normal Breath Sounds Neuro: Positive: Grossly Intact Abdomen: Positive: Soft, Active Bowel Sounds. Negative: Tender, Distended Male genitourinary: Positive: normal Skin: Positive: Clear Incision: Cardiac Cath Site Musculoskeletal: No Pain, Normal Range of Motion Extremities: Present: normal. Absent: edema Results 09/12/16 07:01 09/13/16 07:23 Comprehensive Metabolic Panel 09/13/16 Range/Units 07:23 Sodium 135 L (137-145) mmol/L Potassium 4.6 (3.6-5.0) mmol/L Chloride 97.9 L (98-107) mmol/L Carbon Dioxide 26 (22-30) mmol/L BUN 12 (9-20) mg/dL Creatinine 0.7 L (0.8-1.5) mg/dL Glucose 264 H (75-100) mg/dL Calcium 8.2 L (8.4-10.2) mg/dL - Imaging and Cardiology Stress echo: pending Echo: pending EKG interpretations - Telemetry EKG Rhythm: Sinus Rhythm (normal sinus rhythm nonspecific ST-T is) Assessment and Plan Chest pain suspect anginal pain Obesity Hypertension Hyperlipidemia rec stress test showed no significant ischemia and normal lv function ,add ranexa to his regimine of coreg, nitrates, asa and plavix and 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
--- NOTE | 2016-09-13 11:22 | Treadmill Report ---
NUCLEAR STRESS TEST REASON FOR STUDY: Chest pain. READING PHYSICIAN: Doug Cuba MD IMAGING PROTOCOL: The patient received 10 mCi of Technetium 99m Tetrofosmin for resting image and 28 mCi of Technetium 99m Tetrofosmin for stress imaging. The imaging for the whole procedure was completed 30-90 minutes following the initial injection of Technetium 99m tetrofosmin. The SPECT imaging in the 180 degree arc was performed in the right anterior oblique projection. Computerized reconstruction of the images was performed for analysis. IMAGING RESULTS: Normal cavity size from stress to rest. Normal distribution of radionuclide in the anterior, inferior, septal, and apical regions. Gated SPECT, EF of 51% with no wall motion abnormalities. The patient infused Lexiscan with no EKG changes. SUMMARY: 1. Negative Lexiscan EKG. 2. Normal rest and stress myocardial perfusion scan. No significant stress ischemia. No wall motion. Gated SPECT, EF 51%. JOB# [id number] NEAL/ANANDA
[2016-09-13] MEDS ORDERED: ROXICODONE PO PRN (11:59)
[2016-09-13] MEDS ORDERED: RANEXA ER PO SCH (12:00)
[2016-09-13] MEDS: LOVENOX SUB-Q SCH (12:01)
[2016-09-13] MEDS: COREG PO SCH (12:47)
[2016-09-13] MEDS: PLAVIX PO SCH (12:48)
[2016-09-13] MEDS: celeXA PO SCH (12:48)
[2016-09-13] MEDS: ASPIRIN PO SCH (12:48)
[2016-09-13] MEDS: NOVOLOG SUB-Q SCH ×2 (12:49→16:47)
[2016-09-13] MEDS: IMDUR PO SCH (13:01)
--- NOTE | 2016-09-13 13:02 | Discharge Summary ---
Providers - Providers Date of Admission: 09/11/16 08:28 Date of discharge: 09/13/16 Attending physician: JAZ MORALES 09/11/16 08:52 Consult to Physician [CONS] Routine Consulting Provider: RODNEY RAYMOND Reason For Exam: chest pain/h/o CABG Place consult to:: instructional technology teacher Notified:: a service Phone number called:: [phone] Was contact made?: Yes If yes, spoke with:: reshma Time called:: 14:47 09/12/16 18:37 psychiatry consult [Consult to Mental Health] [CONS] Routine Reason For Exam: depression/anxiety Place consult to:: instructional technology teacher Notified:: pacheco Was contact made?: Yes Time called:: 11:43 Primary care physician: EDGE ROLLER Hospitalization Reason for admission: left-sided chest pain Condition: Stable Pertinent studies: Chest x-ray; normal study Echocardiogram; global (systolic function is at the lower limits of normal, LV ejection fraction 45-50% Nuclear stress test; negative stress test normal left ventricular function with ejection fraction of 51% Hospital course: Very pleasant 36-year-old man patient with significant past medical history of coronary artery disease status post CABG in 2009 type 2 diabetes mellitus hypertension dyslipidemia anxiety disorder was admitted through emergency room with atypical chest pain of 2 days' duration. She was admitted and managed symptomatically with cardiac medications in view of his multiple risk factors, patient was evaluated by payroll and benefits assistant in consultation, recommended stress test which was negative for reversible ischemia with lower normal left ventricular function with ejection fraction of 45% Patient's medications were optimized symptoms significantly improved Today he is comfortable in bed alert awake oriented 3 not in acute distress Denies chest pain or shortness of breath Vital signs are stable [id number] evaluation physical examination done by [facility] prior to discharge is unremarkable Clear cardiology for discharge and follow up with his private payroll and benefits assistant per scheduled Patient is hemodynamically and clinically stable for discharge and does not need any further acute inpatient care at this time Disposition: DISCHARGED TO HOME OR SELFCARE Time spent for discharge: 32 min - Discharge Diagnoses (1) Chest pain Status: Acute Qualifiers: Chest pain type: precordial chest pain Qualified Code(s): R07.2 - Precordial pain (2) Hyperkalemia Status: Acute (3) Gastroesophageal reflux disease Status: Acute Qualifiers: Esophagitis presence: E (4) Insulin dependent diabetes mellitus Status: Acute (5) Status post coronary artery bypass graft Status: Acute (6) Depression Status: Chronic Qualifiers: Depression Type: other depression Major depression recurrence: M Active/ Remission status: A Major depression episode severity: M Psychotic features : P Trimester: T Qualified Code(s): F32.89 - Other specified depressive episodes (7) Dyslipidemia Status: Chronic (8) Hypomagnesemia Status: Acute Core Measure Documentation - Palliative Care Palliative Care/ Comfort Measures: Not Applicable - Core Measures Any of the following diagnoses?: none Exam - Constitutional Vitals: Temp Pulse Resp BP Pulse Ox 97.2 F L 80 20 125/66 97 09/13/16 11:30 09/13/16 11:30 09/13/16 11:30 09/13/16 11:30 09/13/16 11:30 General appearance: Present: no acute distress, well-nourished - EENT Eyes: Present: PERRL, EOM intact - Neck Neck: Present: supple, normal ROM - Respiratory Respiratory effort: normal Respiratory: negative: rales, rhonchi, wheezing - Cardiovascular Rhythm: regular Heart Sounds: Present: S1 & S2 - Extremities Extremities: no ischemia, pulses intact, pulses symmetrical Peripheral Pulses: within normal limits - Abdominal General gastrointestinal: Present: soft, non-tender, non-distended, normal bowel sounds - Integumentary Integumentary: Present: clear, warm - Musculoskeletal Musculoskeletal: strength equal bilaterally - Psychiatric Psychiatric: appropriate mood/affect, cooperative - Neurologic Neurologic: CNII-XII intact, moves all extremities Plan Activity: no restrictions Diet: diabetic, other (cardiac diet) Additional Instructions: f/u private payroll and benefits assistant 1 week. advised to comply with meds ,diet and f/u with doc appointments. If you have chest pain or shortness of breath contact M.D. or go to emergency room. Behavioral health/ psychiatric follow-up as outpatient within 1 week Follow up with: PRIMARY CARE, [Primary Care Provider] - 3-5 Days Prescriptions: Famotidine [Pepcid] 20 mg PO BID #30 tablet oxyCODONE [Roxicodone TAB] 5 mg PO TID PRN #15 tablet PRN Reason: Pain, Moderate (4-6) Ranolazine ER [Ranexa ER] 500 mg PO BID #60 tablet
[2016-09-13 15:33] VITALS: BP 122/70
== END 2016-09-13 20:05 | disposition home or self-care (01) | DRG 313 ==
LOC: ED 20:53 → 4A 09-11 08:28
PROVIDERS: ADMIT Internal Medicine; ATTEND Internal Medicine
DX: R07.9 Chest pain, unspecified (principal); E87.5 Hyperkalemia; I25.10 Atherosclerotic heart disease of native coronary artery without angina pectoris; E11.40 Type 2 diabetes mellitus with diabetic neuropathy, unspecified; I25.2 Old myocardial infarction; I50.9 Heart failure, unspecified; E83.42 Hypomagnesemia; I11.0 Hypertensive heart disease with heart failure; E11.65 Type 2 diabetes mellitus with hyperglycemia; F32.9 Major depressive disorder, single episode, unspecified; F41.9 Anxiety disorder, unspecified; Z90.49 Acquired absence of other specified parts of digestive tract; Z95.1 Presence of aortocoronary bypass graft; E78.5 Hyperlipidemia, unspecified; Z98.61 Coronary angioplasty status; Z82.49 Family history of ischemic heart disease and other diseases of the circulatory system; Z91.041 Radiographic dye allergy status; Z91.19 Patient's noncompliance with other medical treatment and regimen; Z71.9 Counseling, unspecified
CPT/HCPCS: 36415; 71010; 78452; 80048; 80061; 80074; 80307; 80320; 81001; 82550; 82553; 82962; 83036; 83735; 83880; 84132; 84484; 85025; 85610; 85730; 87040; 87086; 93005; 93010; 93017; 93306; 96361; 96365; 96367; 96375; A9270-GY; A9502; G0480; J1200; J1650; J1815; J1818; J2270; J2405; J2785; J3475; J7030